=== PATIENT | female | born 1990 | race Caucasian/White ===

== ENCOUNTER 2021-08-25 18:52 | Emergency (ER) | payer OTHER, SELFPAY ==
--- NOTE | 2021-08-25 19:09 | ERPHSYRPT ---
- History of Present Illness Time Seen by Provider: 08/25/21 19:09 Source: patient Exam Limitations: no limitations Physician History: This is an obese, right-handed 31-year-old white female who presents with left mid upper arm pain that came on suddenly when she reached over to pull the covers over her while she was sleeping. She did not fall. This occurred approximately 4 days ago. The pain has not improved. Patient has never had anything like this before. She does not have left shoulder pain. She does not have left elbow pain. It is lateral mid upper arm pain. Method of Injury: unknown Quality: sharpness, stabbing Severity of Pain-Max: mild Severity of Pain-Current: mild (When not moving. However with movement and palpation it is moderate pain) Extremities Pain Location: arm: left Modifying Factors: Improves With: movement Associated Symptoms: none Allergies/Adverse Reactions: No Known Drug Allergies Allergy (Unverified 08/25/21 19:17) Home Medications: No Reportable Medications [No Reported Medications] 08/25/21 [History] Hx Tetanus, Diphtheria Vaccination/Date Given: Yes Hx Influenza Vaccination/Date Given: No Hx Pneumococcal Vaccination/Date Given: No Travel Risk - International Travel Have you traveled outside of the country in past 3 weeks: No - Coronavirus Screening Are you exhibiting any of the following symptoms?: No Close contact with a COVID-19 positive Pt in past 14-21 Days: No - Review of Systems Constitutional: No Symptoms Eyes: No Symptoms Ears, Nose, & Throat: No Symptoms Respiratory: No Symptoms Cardiac: No Symptoms Abdominal/Gastrointestinal: No Symptoms Genitourinary Symptoms: No Symptoms Musculoskeletal: Other (Left upper arm pain) Skin: No Symptoms Neurological: No Symptoms Psychological: No Symptoms Endocrine: No Symptoms Hematologic/Lymphatic: No Symptoms Immunological/Allergic: No Symptoms All Other Systems: Reviewed and Negative - Past Medical History Pertinent Past Medical History: Yes Neurological History: Seizures GI Medical History: Gallbladder Disease - Past Surgical History Past Surgical History: Yes Female Surgical History: Tubal Ligation - Social History Smoking Status: Current every day smoker Exposure to second hand smoke: No Drug Use: none Patient Lives Alone: No - Nursing Vital Signs Nursing Vital Signs: Initial Vital Signs Temperature 98.2 F 08/25/21 19:15 Pulse Rate 102 H 08/25/21 19:15 Respiratory Rate 20 08/25/21 19:15 Blood Pressure 169/95 08/25/21 19:15 O2 Sat by Pulse Oximetry 97 08/25/21 19:15 Pain Scale Pain Intensity 9 - Physical Exam General Appearance: no apparent distress, alert, anxiety, obese Eyes, Ears, Nose, Throat Exam: normal ENT inspection, moist mucous membranes Neck Exam: normal inspection, non-tender, supple, full range of motion Cardiovascular/Respiratory Exam: chest non-tender, no respiratory distress Abdominal Exam: non-tender Back Exam: normal inspection, normal range of motion, No CVA tenderness, No vertebral tenderness Shoulder Exam: normal inspection, non-tender, no evidence of injury, normal ROM, pain (Mid upper arm pain lateral aspect. No skin changes in the area of tenderness.) Elbow/Forearm Exam: normal inspection, non-tender, no evidence of injury, normal ROM Wrist Exam: normal inspection, non-tender, no evidence of injury, normal ROM Hand Exam: normal inspection, non-tender Neuro/Tendon Exam: normal sensation, normal motor functions, normal tendon functions Mental Status Exam: alert, oriented x 3, cooperative Skin Exam: normal color, warm, dry SpO2 Interpretation: normal O2 Delivery: Room Air - Course Nursing assessment & vital signs reviewed: Yes Ordered Tests: Active Orders 24 hr Category Date Time Status Sling Application STAT Care 08/25/21 20:54 Active HUMERUS Stat Exams 08/25/21 20:46 Taken - Progress Progress: unchanged Progress Note: 08/25/21 20:56 X-ray left humerus shows no acute fracture or dislocation. Counseled pt/family regarding: diagnosis, need for follow-up, rad results - Departure Departure Disposition: Home Clinical Impression: Left arm pain Condition: Stable Critical Care Time: No Referrals: DENILSON METZGER [ACTIVE STAFF] - [facility]-Ortho [id number] (Popping sensation in the lateral left upper arm mid level humerus. No acute traumatic injury. Continues to be tender over the last 4 days) Additional Instructions: Ice pack to tender area 3 times a day for the next 48 hours. Wear sling for comfort sake. Use Tylenol and ibuprofen for pain control. Follow-up tomorrow morning, 08/26/2021, at the [facility] orthopedic clinic between 8 AM and 10 AM tomorrow morning for reevaluation and further management
[2021-08-25 20:41] VITALS: BP 139/85; PULSE 79; O2SAT 98
--- NOTE | 2021-08-26 09:17 | XRAY ---
Indication: Pain. No known injury. Comparison: None 2 view left humerus obtained. No bony, articular, or soft tissue abnormalities.
== END 2021-08-25 21:12 | disposition home or self-care (01) ==
LOC: ED 18:52
DX: M79.602 Pain in left arm (principal)
CPT/HCPCS: 73060; 99283

== ENCOUNTER 2023-02-24 20:23 | Emergency (ER) | payer OTHER ==
[2023-02-24] MEDS ORDERED: TORAdol 30 mg Injection IM ONE (21:46)
[2023-02-24] MEDS ORDERED: TORAdol 30 mg Injection ONE (21:47)
[2023-02-24 23:11] VITALS: BP 122/70; PULSE 71; O2SAT 98
--- NOTE | 2023-02-24 23:17 | ERPHSYRPT ---
- History of Present Illness Time Seen by Provider: 02/24/23 23:13 Source: patient Exam Limitations: no limitations Patient Subjective Stated Complaint: pt states that she was horse playing and began to run. pt states she heard a pop Triage Nursing Assessment: pt ambulated into the er; pt is axo x4; c/o LLE pain; bruising present to left calf; limited ROM to LLE; strong left pedal pulse; swelling present to left calf; no respiratory distress present; skin PDW; vitals wnl Physician History: Patient is a 32-year-old female presents to our ED for evaluation of pain to her left calf. Patient went to run and felt a popping sensation in her left calf mid substance. Patient later developed ecchymosis to the area of tenderness. Patient experiences pain with active plantarflexion and palpation to the mid substance of the left gastrocnemius muscle. The extremity is otherwise neurovascular intact. No other injuries reported. Pain described as an ache that is localized. Pain worse with weightbearing and palpation. Pain improved with rest. Patient is otherwise healthy. She voices no other complaints or concerns at this time. Portions of this note were created with voice recognition technology. There may be grammatical, spelling, punctuation or sound alike errors Method of Injury: other (Forced muscle contraction) Occurred: hours ago (3 days ago) Quality: constant Severity of Pain-Max: moderate Severity of Pain-Current: mild Lower Extremities Pain: other: left (Left calf. Left lower extremity is neurovascular tact distally. Compartments are soft. Cap refill less than 2 seconds. PT DP pulse palpable.) Modifying Factors: Improves With: movement Associated Symptoms: none Allergies/Adverse Reactions: No Known Drug Allergies Allergy (Verified 02/24/23 20:48) Hx Tetanus, Diphtheria Vaccination/Date Given: No (unknown) Hx Influenza Vaccination/Date Given: No Hx Pneumococcal Vaccination/Date Given: No Travel Risk - International Travel Have you traveled outside of the country in past 3 weeks: No - Coronavirus Screening Close contact with a COVID-19 positive Pt in past 14-21 Days: No - Vaccine Status Have you recieved a Covid-19 vaccination: No - Review of Systems Constitutional: No Symptoms, No Fever, No Chills Eyes: No Symptoms Ears, Nose, & Throat: No Symptoms Respiratory: No Symptoms, No Cough, No Dyspnea Cardiac: No Symptoms, No Chest Pain, No Edema, No Syncope Abdominal/Gastrointestinal: No Symptoms, No Abdominal Pain, No Nausea, No Vomiting, No Diarrhea Genitourinary Symptoms: No Symptoms, No Dysuria Musculoskeletal: No Symptoms, No Back Pain, No Neck Pain Skin: No Symptoms, No Rash Neurological: No Symptoms, No Dizziness, No Focal Weakness, No Sensory Changes Psychological: No Symptoms Endocrine: No Symptoms Hematologic/Lymphatic: No Symptoms Immunological/Allergic: No Symptoms All Other Systems: Reviewed and Negative - Past Medical History Pertinent Past Medical History: Yes Neurological History: Seizures ENT History: No Pertinent History Cardiac History: No Pertinent History Respiratory History: No Pertinent History Endocrine Medical History: No Pertinent History Musculoskeletal History: No Pertinent History GI Medical History: Gallbladder Disease History: No Pertinent History Psycho-Social History: Anxiety, Depression Female Reproductive Disorders: No Pertinent History - Past Surgical History Past Surgical History: Yes Neuro Surgical History: No Pertinent History Cardiac: No Pertinent History Respiratory: No Pertinent History Gastrointestinal: Cholecystectomy Genitourinary: No Pertinent History Musculoskeletal: Orthopedic Surgery Female Surgical History: Tubal Ligation Other Surgical History: HX Left Foot Surgery - Social History Smoking Status: Current every day smoker How long have you smoked: 14 Exposure to second hand smoke: Yes Drug Use: none Patient Lives Alone: No - Female History Hx Now: No - Nursing Vital Signs Nursing Vital Signs: Initial Vital Signs Temperature 97.9 F 02/24/23 20:48 Pulse Rate 75 02/24/23 20:48 Respiratory Rate 18 02/24/23 20:48 Blood Pressure 139/77 02/24/23 20:48 O2 Sat by Pulse Oximetry 98 02/24/23 20:48 Pain Scale Pain Intensity 6 - Physical Exam General Appearance: no apparent distress, alert Eyes, Ears, Nose, Throat Exam: moist mucous membranes Neck Exam: non-tender, supple Cardiovascular/Respiratory Exam: chest non-tender, normal breath sounds, regular rate/rhythm, no respiratory distress Gastrointestinal/Abdominal Exam: non-tender, guarding Back Exam: normal inspection, No vertebral tenderness Hips Exam: bilateral: non-tender, normal inspection, normal range of motion, no evidence of injury Legs Exam: bilateral leg: non-tender, normal inspection, normal range of motion, no evidence of injury Knees Exam: bilateral knee: non-tender, normal inspection, normal range of motion, no evidence of injury Ankle Exam: bilateral ankle: non-tender, normal inspection, normal range of motion, no evidence of injury Foot Exam: bilateral foot: non-tender, normal inspection, normal range of motion, no evidence of injury Neuro/Tendon Exam: normal sensation, normal motor functions Mental Status Exam: alert, oriented x 3, cooperative Skin Exam: normal color, warm, dry SpO2 Interpretation: normal SpO2: 98 O2 Delivery: Room Air - Course Nursing assessment & vital signs reviewed: Yes Ordered Tests: Medication Summary Discontinued Medications Generic Name Dose Route Start Last Admin Trade Name Margarita PRN Reason Stop Dose Admin Ketorolac Tromethamine 60 mg 02/24/23 21:46 02/24/23 21:47 Ketorolac Tromethamine 30 Mg/Ml Inj IM 02/24/23 21:47 60 mg STAT ONE Administration Ketorolac Tromethamine Confirm 02/24/23 21:47 Ketorolac Tromethamine 30 Mg/Ml Inj Administered 02/24/23 21:48 Dose 60 mg .ROUTE .STParkVu-MED ONE - Progress Progress: improved Progress Note: 32-year-old female presents to our ED with pain to her left calf mid substance after an attempt is run. Patient heard a pop. Physical exam reveals ecchymosis and tenderness to the gastrocnemius muscle. No obvious breach of muscle fibers on physical examination. English test is negative. There is continuity between the calf and Achilles tendon. No Achilles tendon rupture. No bony pain or tenderness. Extremities neurovascular intact distally. Compartments are soft. Cap refill less than 2 seconds. Patient given Toradol IM for pain control. Patient referred to orthopedic clinic for further evaluation and treatment. Bilateral axillary crutches issued. Patient voices no other complaints or concerns at this time. Patient agrees to follow-up in the orthopedic clinic as discussed. Portions of this note were created with voice recognition technology. There may be grammatical, spelling, punctuation or sound alike errors Complexity of problem addressed is low acute uncomplicated. No critical care time Complexity of data reviewed and analyzed is none. Diagnosis made based on history and physical examination. No specialized testing ordered. Risk of complication and or risk morbidity/mortality of patient management is low. Patient received IM Toradol for pain control. Bilateral axillary crutches provided to patient. She agrees to follow-up in the orthopedic clinic for further evaluation and treatment. Time spent in discharge is approximately 10 minutes. Vital stable. Portions of this note were created with voice recognition technology. There may be grammatical, spelling, punctuation or sound alike errors 02/24/23 23:18 Counseled pt/family regarding: diagnosis, need for follow-up - Departure Departure Disposition: Home Clinical Impression: Gastrocnemius tear Condition: Stable Critical Care Time: No Referrals: ELIZABETH VILLEGAS MD [Primary Care Provider] - Follow up/PCP as directed Additional Instructions: Discharge/Care Plan NIKI YU was seen on 02/24/23 in the Emergency Room. The patient was counseled regarding Diagnosis,Lab results, Imaging studies, need for follow up and when to return to the Emergency Room. Prescriptions given: Discharge Note I have spoken with the patient and/or caregivers. I have explained the patient's condition, diagnosis and treatment plan based on the information available to me at this time. I have answered the patient's and/or caregiver's questions and addressed any concerns. The patient and/or caregivers have as good understanding of the patient's diagnosis, condition and treatment plan as can be expected at this point. The vital signs have been stable. The patient's condition is stable and appropriate for discharge from the emergency department. The patient will pursue further outpatient evaluation with the primary care physician or other designated or consulting physician as outlined in the discharge instructions. The patient and/or caregivers are agreeable to this plan of care and follow-up instructions have been explained in detail. The patient and/or caregivers have received these instruction. The patient/and or caregivers are aware that any significant change in condition or worsening of symptoms should prompt an immediate return to this or the closest emergency department or call 911. Prescriptions: Ketorolac Trometh 10 mg Tab [TORAdol 10 MG TABLET] 10 mg PO TID 5 Days #15 tablet
== END 2023-02-24 23:30 | disposition home or self-care (01) ==
LOC: ED 20:23
DX: S86.112A Strain of other muscle(s) and tendon(s) of posterior muscle group at lower leg level, left leg, initial encounter (principal); X50.0XXA Overexertion from strenuous movement or load, initial encounter; Y93.02 Activity, running; Z28.310 Unvaccinated for COVID-19; Z72.0 Tobacco use
CPT/HCPCS: 96372; 99283; J1885